=== PATIENT | male | born 1965 | race Caucasian/White ===

== ENCOUNTER → 2017-11-01 | Outpatient (CLI) | payer OTHER ==
--- NOTE | 2017-11-02 09:32 | XCELERA REPORT ---
[address] [address] Upper Extremity Arterial Evaluation Name: CLAY ALANIZ Age: 52 yrs Gender: Male : 1965 Patient Status: Outpatient Patient Location: Study Date: 11/01/2017 01:10 PM Procedure: A duplex scan of the upper extremity arteries was performed on the right. Reason For Study: RT ELBOW PAIN Ordering Physician: TIERRA ACEVEDO PA-C Performed By: Gera Uriostegui Measurements and Calculations Right Left Prox SCLA PSV 122.2 cm/sec Mid SCLA PSV -85.0 cm/sec Ax A PSV 104.2 cm/sec Prox Brach A PSV 86.4 cm/sec Dist Brach A PSV -92.8 cm/sec Dist Rad A PSV 95.8 cm/sec Dist Ulnar A PSV 103.6 cm/sec Ax A PSV 104.2 cm/sec Dist Brach A PSV -92.8 cm/sec Dist Rad A PSV 95.8 cm/sec Dist Ulnar A PSV 103.6 cm/sec Mid SCLA PSV -85.0 cm/sec Prox Brach A PSV 86.4 cm/sec Right Side Arterial Evaluation Normal velocity and triphasic waveforms noted from the Common Carotid artery to the infrageniculate vessels. 0 % stenosis. Interpretation Summary No hemodynamically significant lesions noted in the right upper extremity arteries, on duplex imaging, at rest. : DANNI MEAS, Andrea >
== END ==
LOC: SP 12:48
PROVIDERS: ATTEND Physician Assistant
DX: M25.521 Pain in right elbow (principal)
CPT/HCPCS: 93931